=== PATIENT | female | born 1940 | race Caucasian/White ===

== ENCOUNTER → 2016-12-19 | Outpatient (CLI) | payer OTHER ==
--- NOTE | 2016-12-19 12:44 | MAMMOGRAPHY REPORT ---
BILATERAL DIGITAL SCREENING MAMMOGRAM WITH CAD: 12/19/2016 CLINICAL HISTORY: Routine screening. TECHNIQUE: Current study was also evaluated with a Computer Aided Detection (CAD) system. Bilateral CC and MLO views were obtained. COMPARISON: Comparison is made to exams dated: 10/18/2015 mammogram, 10/13/2014 mammogram, 10/12/2013 mamm ogram, 10/08/2012 mammogram, 10/08/2011 mammogram, and 10/02/2010 mammogram - [facility] er. BREAST COMPOSITION: The tissue of both breasts is heterogeneously dense, which may obscure small mas ses. FINDINGS: No suspicious masses, calcifications, or areas of architectural distortion are noted in ei ther breast. There has been no significant interval change compared to prior exams. IMPRESSION: ACR BI-RADS CATEGORY 1: NEGATIVE There is no mammographic evidence of malignancy. A 1 year screening mammogram is recommended. The pa tient will receive written notification of the results. Approximately 10% of breast cancers are not detected with mammography. A negative mammographic report should not delay biopsy if a clinically suggestive mass is present. Petra Rand M.D. ah/:12/19/2016 09:39:36 Collator Operator: Rachna JOHNSON(R)(M), [facility] letter sent: Normal 1/2 BI-RADS Code: ACR BI-RADS Category 1: Negative
== END | disposition home or self-care (01) ==
LOC: C.MAMM 08:44
PROVIDERS: ATTEND Internal Medicine
DX: Z12.31 Encounter for screening mammogram for malignant neoplasm of breast (principal)

== ENCOUNTER 2022-04-10 09:40 | Inpatient (IN) ==
[2022-04-10 10:42] LABS: Basophils # (auto) 0.07 K/uL (0-0.2); Basophils % (auto) 0.5 %; Hematocrit (blood only) 37.3 % (34.1-44.9); Hemoglobin 13.4 g/dl (12.0-16.0); Immature Granulocytes # (auto) 0.09 K/uL (0.00-0.02); Immature Granulocytes % (auto) 0.6 %; Lymphocytes # (auto) 0.51 K/uL (1.2-3.4); Lymphocytes % (auto) 3.7 %; Mean Corpuscular Hemoglobin 31.7 pg (25.0-34.0); Mean Corpuscular Hgb Conc 35.9 g/dL (32.0-36.0); Mean Corpuscular Volume 88.2 fL (80.0-100.0); Mean Platelet Volume 10.6 fL (9.4-12.3); Monocytes % (auto) 11.5 %; Neutrophils # (auto) 11.68 K/uL (1.4-6.5); Neutrophils % (auto) 83.7 %; Platelet Count 292 K/uL (130-400); RDW Coefficient of Variation 13.2 % (11.5-14.5); RDW Standard Deviation 42.5 fL (36.4-46.3); Red Blood Count 4.23 M/uL (3.93-5.22); White Blood Count 13.95 K/ul (4.8-10.8)
--- NOTE | 2022-04-10 10:46 | Emergency Department Note ---
Impression & Plan Acute pyelonephritis, Acute hyponatremia ED Provider Note Name: ARASELI SHORT Age: 81 Sex: F Arrives Via: Walk-In Informant: Patient, Son ED Provider: David Dueñas MD Chief Complaint: Illness Impression: As per impressions above Medical Decision Making: Pleasant 81-year-old female who is usually quite active though over the last few days worsening weakness, fevers, urinary symptoms. She does have a history of hypertension, hypothyroidism. She on examination is tired and febrile. Her initial evaluation and some subsequent evaluations were done in the waiting room due to no available main department beds. She was agreeable to these evaluations and understands the difficulty. I did obtain an ultrasound of the bladder which reveals no evidence of acute obstruction. She does have a thickened bladder wall on my ultrasound. Laboratory work-up is with mild WBC elevation as well as a significant hyponatremia which is worse than her baseline. This would lean towards her generalized weakness in addition to the pyelonephritis that given her fevers, white blood cell count UA findings and left flank tenderness palpation is evident. She will be treated with IV Rocephin after blood cultures and lactic acid obtained. The hospitalist was consulted for further management given she is quite weak and has multiple concerning findings. Patient and son are comfortable with this plan. I will note she has no abdominal peritonitis and is not in severe sepsis/septic shock at this time with a normal blood pressure and normal lactate thus would not give 30/kg IV fluids at this time. Prior Medical Record and Triage/Nursing Notes reviewed by Me Additional history obtained from Differentials:Infection, dehydration, metabolic abnormality, hypo/hyperglycemia, electrolyte disturbance, anemia, hypoxia, cardiac sources, intracerebral event, toxicologic, neurologic, as well as other pathologies. Vital Signs: reviewed and remarkable for fever hypertension Interventions: Normal saline bolus, Rocephin 2 g IV Labs:Reviewed and remarkable for hyponatremia, mildly elevated white blood cell count, UA consistent with UTI Consults:[facility] Hospitalist Plan: Disposition:Hospitalization. Condition: Good History of Present Illness:81-year-old female arrives for evaluation of urinary burning. Patient with 5 days of urinary burning, frequency, urgency. She notes last few days urine output has decreased. Associated fevers, chills some mild left flank pain. No nausea, vomiting, passing out. No she feels very weak and has been using a cane to get around due to the weakness. Denies any headache, neck pain, neurologic deficits. Tylenol earlier this morning with improvement though fevers to return. No significant history of urinary infections. She also notes she has not had normal bowel movement in the last week but is passing gas. ROS: See above HPI for pertinent positives & negatives. A total of 10 systems reviewed and were otherwise negative. Past Medical History:Hypothyroid, hypertension Past Surgical History:none Family History:non-contributory Social History:nonsmoker Home Medications:See Below Allergies:nkda Vitals:Blood Pressure: 162/80, Pulse 83, RR 20, T 38.0C, O2 96% on RA Physical Exam: GENERAL: Patient is tired appearing and in minimal distress. EYES: No scleral icterus, unremarkable pupils. ENT: Mucous membranes moist, no nasal congestion. NECK: No masses appreciated, nomeningismus, trachea is midline. RESPIRATORY: No dyspnea. Clear to auscultation and equal bilaterally. No wheeze, no rhonchi. CARDIOVASCULAR: Regular rate and rhythm.No murmurs, rubs, gallops appreciated. GASTROINTESTINAL: Abdomen soft, non-tender, no peritonitis.Bowel sounds positive.No masses appreciated. BACK: No midline tenderness, mild left CVA tenderness EXTREMITIES: Normal motion all extremities, no cyanosis, no edema. NEUROLOGIC: Alert and oriented, no acute motor or sensory deficits, no focal weakness, cranial nerves grossly intact. SKIN: No rash, no jaundice, no diaphoresis. PSYCH: Appropriate GCS: 15 ED Course: Times/Reassessments: Patient is stable and agreeable to hospitalization. David Dueñas MD Past Med/Surg History Medical History (Updated 04/10/22 @ 13:50 by David Dueñas MD) Chronic hyponatremia HTN (hypertension) Hypothyroidism Surgical History (Updated 04/10/22 @ 13:25 by Jane Olvera PA-C) History of cataract surgery History of colonoscopy Family History (Updated 04/10/22 @ 13:25 by Jane Olvera PA-C) Father Stroke Mother Stroke Social History (Updated 04/10/22 @ 13:25 by Jane Olvera PA-C) Smoking Status: Never smoker Hx Alcohol Use: No Hx Substance Use: No Preferred Language: Croatian Feels Safe at Home: Yes Allergies Allergies Allergy/AdvReac Type Severity Reaction Status Date / Time No Known Allergies Allergy Verified 08/17/20 12:26 Home Meds Home Medications Medication Instructions Recorded Confirmed aspirin 81 mg tablet,delayed 81 mg PO MOWEFR 02/19/20 04/10/22 release levothyroxine 112 mcg tablet 112 mcg PO QAM 02/19/20 04/10/22 lisinopril 20 mg tablet 20 mg PO BID 02/19/20 04/10/22 metoprolol succinate 25 mg 25 mg PO PM 02/19/20 04/10/22 tablet,extended release 24 hr multivit with 1 tab PO QAM 02/19/20 04/10/22 seuhwopt-veei-AJ-lutein 8 mg iron-400 mcg-300 mcg tablet (Centrum Silver Women) calcium carb-ergocalciferol (vit 1 tab PO MOFR 04/10/22 04/10/22 D2) 500 mg (1,250 mg)-200 unit tablet Results & Data (ED) Vital Signs Vital Signs - 24 hr 04/10/22 09:53 Temperature 38.0 C H Temperature Source Temporal Artery Scan Pulse Rate 83 Pulse Rhythm Regular Pulse Strength Normal Respiratory Rate 20 Respiratory Effort / Characteristics Non-Labored Spontaneous Respiratory Depth Normal Respiratory Pattern Regular Blood Pressure 162/80 H Blood Pressure Mean 107 Blood Pressure Position Sitting Pulse Oximetry 96 Oxygen Delivery Method Room Air Sepsis Recent Fever Within 48 Hours Yes Sepsis New/Unexplained Change in Mental Status No Sepsis Action Taken by Nursing No Action Required Laboratory Data Result diagrams: 04/10/22 10:23 04/10/22 10:23 Lab Results 04/10/22 04/10/22 04/10/22 Range/Units 10:23 10:23 10:23 WBC 13.95 H (4.8-10.8) K/ul RBC 4.23 (3.93-5.22) M/uL Hgb 13.4 (12.0-16.0) g/dl Hct 37.3 (34.1-44.9) % MCV 88.2 (80.0-100.0) fL MCH 31.7 (25.0-34.0) pg MCHC 35.9 (32.0-36.0) g/dL RDW Std Deviation 42.5 (36.4-46.3) fL RDW Coeff of Sri 13.2 (11.5-14.5) % Plt Count 292 (130-400) K/uL MPV 10.6 (9.4-12.3) fL Immature Gran % (Auto) 0.6 % Neut % (Auto) 83.7 % Lymph % (Auto) 3.7 % Emanuel % (Auto) 11.5 % Eos % (Auto) 0.0 % Baso % (Auto) 0.5 % Neut # (Auto) 11.68 H (1.4-6.5) K/uL Lymph # (Auto) 0.51 L (1.2-3.4) K/uL Emanuel # (Auto) 1.60 H (0.24-0.82) K/uL Eos # (Auto) 0.00 (0-0.50) K/uL Baso # (Auto) 0.07 (0-0.2) K/uL Immature Gran # (Auto) 0.09 H (0.00-0.02) K/uL Sodium 124 L (136-145) mmol/L Potassium 4.4 (3.5-5.1) mmol/L Chloride 91 L (98-107) mmol/L Carbon Dioxide 23 (21-32) mmol/L Anion Gap 10 (3-11) BUN 12 (6-23) mg/dl Creatinine 1.07 (0.6-1.2) mg/dl Est Cr Clr Drug Dosing 37.1 ml/min Est GFR ( Amer) 56.4 ml/min Est GFR (Non-Af Amer) 48.6 ml/min BUN/Creatinine Ratio 11.2 (10-20) Glucose 109 H (70-99(Fasting)) mg/dl Lactate (0.4-2.0) mmol/L Calcium 9.4 (8.5-10.1) mg/dl Total Bilirubin 1.1 H (0.2-1.0) mg/dl AST 19 (13-39) U/L ALT 13 (7-52) U/L Alkaline Phosphatase 71 (34-104) U/L Total Protein 7.5 (6.0-8.3) gm/dl Albumin 4.2 (3.4-5.0) gm/dl Globulin 3.3 (2.5-4.0) gm/dl Albumin/Globulin Ratio 1.3 (0.9-2) Procalcitonin (0-0.5) ng/ml Urine Color Dark Yellow Urine Appearance Turbid A (Clear) Urine pH 6.0 (4.5-7.5) Ur Specific Orange 1.017 (1.000-1.030) Urine Protein 2+ H (Negative) Urine Glucose (UA) Negative (Negative) Urine Ketones 1+ H (Negative) Urine Blood 3+ H (Negative) Urine Nitrite Positive A (Negative) Urine Bilirubin Negative (Negative) Urine Urobilinogen Negative (Negative) Ur Leukocyte Esterase 3+ H (Negative) Urine WBC (Auto) >30 H (0-5) /hpf Urine RBC (Auto) >30 H (0-4) /hpf U Hyaline Cast (Auto) 1-5 (0-5) /lpf U Epithel Cells (Auto) 5-10 H (0-5) /lpf Urine Bacteria (Auto) 4+ H (Negative) SARS-CoV-2 (PCR) (Negative) Influenza Type A (PCR) (Neg) Influenza Type B (PCR) (Neg) RSV (RT-PCR) (Neg) 04/10/22 04/10/22 04/10/22 Range/Units 11:43 11:43 12:51 WBC (4.8-10.8) K/ul RBC (3.93-5.22) M/uL Hgb (12.0-16.0) g/dl Hct (34.1-44.9) % MCV (80.0-100.0) fL MCH (25.0-34.0) pg MCHC (32.0-36.0) g/dL RDW Std Deviation (36.4-46.3) fL RDW Coeff of Sri (11.5-14.5) % Plt Count (130-400) K/uL MPV (9.4-12.3) fL Immature Gran % (Auto) % Neut % (Auto) % Lymph % (Auto) % Emanuel % (Auto) % Eos % (Auto) % Baso % (Auto) % Neut # (Auto) (1.4-6.5) K/uL Lymph # (Auto) (1.2-3.4) K/uL Emanuel # (Auto) (0.24-0.82) K/uL Eos # (Auto) (0-0.50) K/uL Baso # (Auto) (0-0.2) K/uL Immature Gran # (Auto) (0.00-0.02) K/uL Sodium (136-145) mmol/L Potassium (3.5-5.1) mmol/L Chloride (98-107) mmol/L Carbon Dioxide (21-32) mmol/L Anion Gap (3-11) BUN (6-23) mg/dl Creatinine (0.6-1.2) mg/dl Est Cr Clr Drug Dosing ml/min Est GFR ( Amer) ml/min Est GFR (Non-Af Amer) ml/min BUN/Creatinine Ratio (10-20) Glucose (70-99(Fasting)) mg/dl Lactate 0.8 (0.4-2.0) mmol/L Calcium (8.5-10.1) mg/dl Total Bilirubin (0.2-1.0) mg/dl AST (13-39) U/L ALT (7-52) U/L Alkaline Phosphatase (34-104) U/L Total Protein (6.0-8.3) gm/dl Albumin (3.4-5.0) gm/dl Globulin (2.5-4.0) gm/dl Albumin/Globulin Ratio (0.9-2) Procalcitonin 0.50 (0-0.5) ng/ml Urine Color Urine Appearance (Clear) Urine pH (4.5-7.5) Ur Specific Orange (1.000-1.030) Urine Protein (Negative) Urine Glucose (UA) (Negative) Urine Ketones (Negative) Urine Blood (Negative) Urine Nitrite (Negative) Urine Bilirubin (Negative) Urine Urobilinogen (Negative) Ur Leukocyte Esterase (Negative) Urine WBC (Auto) (0-5) /hpf Urine RBC (Auto) (0-4) /hpf U Hyaline Cast (Auto) (0-5) /lpf U Epithel Cells (Auto) (0-5) /lpf Urine Bacteria (Auto) (Negative) SARS-CoV-2 (PCR) NEGATIVE (Negative) Influenza Type A (PCR) Negative (Neg) Influenza Type B (PCR) Negative (Neg) RSV (RT-PCR) Negative (Neg) Administered Medications Discontinued Medications Sodium Chloride (Nss) 500 mls @ 999 mls/hr IV .Q31M ONE Stop: 04/10/22 12:04 Last Infusion: 04/10/22 13:07 Dose: 0 mls/hr Documented By: Admin: 04/10/22 12:35 Dose: 999 mls/hr Documented By: TNB Ceftriaxone Sodium (Rocephin) 2,000 mg in 70 mls @ 140 mls/hr IV NOW STA Stop: 04/10/22 12:03 Last Infusion: 04/10/22 13:07 Dose: 0 mls/hr Documented By: Admin: 04/10/22 12:35 Dose: 140 mls/hr Documented By: TNB Discharge Plan Visit Data Chief Complaint: Urinary Symptoms Stated Complaint: FEVER, HARD TIME URINATING ED Provider: David Dueñas Discharge Problem: Acute pyelonephritis, Acute hyponatremia Forms Stand Alone Forms: [facility] Prescriptions Prescriptions: No Action lisinopril 20 mg tablet 20 mg PO BID aspirin [Aspirin Low-Strength] 81 mg Tablet,Delayed Release (Dr/Ec) 81 mg PO MOWEFR Rx Instructions: takes at noon metoprolol succinate 25 mg tablet extended release 24 hr 25 mg PO PM levothyroxine 112 mcg tablet 112 mcg PO QAM Centrum Silver Women 8 mg iron-400 mcg-300 mcg Tablet 1 tab PO QAM Calcium 500 with Vitamin D2 500 mg(1,250mg) -200 unit Tablet 1 tab PO MOWEFR Referrals Referrals: Billy Feliz [Primary Care Provider] -
[2022-04-10 10:48] LABS: Appearance Urine Turbid (Clear); Bacteria Urine Automated 4+ (Negative); Bilirubin Urine Negative (Negative); Blood Urine 3+ (Negative); Color Urine Dark Yellow; Glucose Urine UA Negative (Negative); Ketones Urine 1+ (Negative); Leukocyte Esterase Urine 3+ (Negative); Nitrite Urine Positive (Negative); Protein Urine 2+ (Negative); RBC Urine Automated >30 /hpf (0-4); Specific Gravity Urine 1.017 (1.000-1.030); Urobilinogen Urine Negative (Negative); WBC Urine Automated >30 /hpf (0-5)
--- NOTE | 2022-04-10 10:52 | Emergency Department Note ---
ED Visit Note I personally performed a history and examined the patient in conjunction with Dr. Dueñas. Additional information regarding the history, physical, assessment, and plan were discussed with supervising attending physician and are noted in their ED visit note. Resident Activity Tracking Resident Involvement: Resident Care Provided Care Provided: Adult ED
[2022-04-10 11:10] LABS: Albumin Globulin Ratio 1.3 (0.9-2); Albumin Level 4.2 gm/dl (3.4-5.0); BUN Creatinine Ratio 11.2 (10-20); Bilirubin,Total 1.1 mg/dl (0.2-1.0); Calcium 9.4 mg/dl (8.5-10.1); Creatinine Clr Calc Pharmacy 37.1 ml/min; Est GFR (African American) 56.4 ml/min; Est GFR (Non-African American) 48.6 ml/min; Globulin 3.3 gm/dl (2.5-4.0); Potassium 4.4 mmol/L (3.5-5.1); Total Protein 7.5 gm/dl (6.0-8.3)
[2022-04-10] MEDS ORDERED: cefTRIAXone SODIUM 2,000 MG/70 ML BAG IV STA (11:34)
[2022-04-10] MEDS ORDERED: SODIUM CHLORIDE 0.9% 500 ML IV ONE (11:34)
--- NOTE | 2022-04-10 12:33 | History & Physical Report ---
Date of Service April 10, 2022 Assessment & Plan (1) UTI (urinary tract infection): (2) Sepsis: Plan: Possible Pyelonephritis Patient is 81-year-old female with PMH HTN, hypothyroidism, chronic hyponatremia presented to ER with complaint of urinary frequency, urinary urgency, dysuria, hematuria x5 days. Fever 102F started yesterday. Today with generalized weakness and lightheadedness. In ER T: 38C, P: 83, R: 20, BP 162/80, 96% on room air. WBC: 13, Cr: 1.0, lactate: 0.8, procalcitonin: 0.5. UA 3+ blood, + nitrite, 3+ leuk esterase,> 30 WBC, 4+ bacteria Urine culture pending Blood culture pending In ER given 500 mL NSS, Rocephin 2 g IV Will continue Rocephin Renal ultrasound pending to r/o stone, pyelonephritis PT/OT eval Fall precautions CBC, BMP in a.m. (3) Chronic hyponatremia: Plan: Na: 124. Outpatient chart review shows sodium of 125 on 04/03/2022, 126 on 11/07/2021 and 06/18/2021 Urine osmolality, serum osmolality, urine sodium, TSH pending Repeat BMP today to determine further IVF (4) HTN (hypertension): Plan: Continue lisinopril, metoprolol succinate (5) Hypothyroidism: Plan: TSH pending Continue levothyroxine DVT Prophylaxis SCDs for now Full Code as per discussion with pt Follows with Dr Feliz for routine care Pt was seen and care coordinated with Dr Armando. See addendum History of Present Illness Chief Complaint: Urinary symptoms Primary Care Provider: Billy Feliz Patient is 81-year-old female with PMH HTN, hypothyroidism, chronic hyponatremia presented to ER with complaint of urinary symptoms x5 days. Patient states 5 days ago started with urinary urgency, urinary frequency, dysuria, hematuria. Reports was seen at an urgent care center 4 days ago and had urine sample however never was told results and was not started on any antibiotics. Patient reports urinating frequently however small amounts past 2 days. Yesterday with fever 102F, chills. Today has generalized weakness, feels lightheaded. Patient also reports left flank tenderness with range of motion. Denies history of UTI or kidney stones. Denies injury or trauma. Patient has been taking Tylenol 1 OTC tablet which initially brings down fever however fever returns. Last dose Tylenol this morning. States no BM for past 4 days. Denies diaphoresis, N/V/D, ROS[place]HAL, syncope, vision changes, neck pain, CP, SOB, orthopnea, palpitations, cough, sore throat, choking, otalgia, rhinorrhea, other abdominal pain, paresthesias, extremity weakness, extremity edema, rashes. Allergies Allergy/AdvReac Type Severity Reaction Status Date / Time No Known Allergies Allergy Verified 08/17/20 12:26 Home Medications Medication Instructions Recorded Confirmed Type aspirin 81 mg tablet,delayed 81 mg PO MOWEFR 02/19/20 04/10/22 History release levothyroxine 112 mcg tablet 112 mcg PO QAM 02/19/20 04/10/22 History lisinopril 20 mg tablet 20 mg PO BID 02/19/20 04/10/22 History metoprolol succinate 25 mg 25 mg PO PM 02/19/20 04/10/22 History tablet,extended release 24 hr multivit with 1 tab PO QAM 02/19/20 04/10/22 History zwttjefn-mdeu-GE-lutein 8 mg iron-400 mcg-300 mcg tablet (Centrum Silver Women) calcium carb-ergocalciferol (vit 1 tab PO MOWEFR 04/10/22 04/10/22 History D2) 500 mg (1,250 mg)-200 unit tablet Past Med/Surg History Medical History (Updated 04/10/22 @ 13:50 by David Dueñas MD) Chronic hyponatremia HTN (hypertension) Hypothyroidism Surgical History (Updated 04/10/22 @ 13:25 by Jane Olvera PA-C) History of cataract surgery History of colonoscopy Family History (Updated 04/10/22 @ 13:25 by Jane Olvera PA-C) Father Stroke Mother Stroke Social History (Updated 04/10/22 @ 13:25 by Jane Olvera PA-C) Smoking Status: Never smoker Hx Alcohol Use: No Hx Substance Use: No Preferred Language: Dutch Feels Safe at Home: Yes Review of Systems Review of Systems: All systems reviewed & are unremarkable except as noted in HPI & below Physical Exam Physical Exam: General: no distress, WDWN Head: normocephalic, atraumatic Eyes: conjunctiva non-injected, anicteric ENT: normal inspection external ears, nose, mucous membranes moist Neck: supple, trachea midline Lungs: clear, no respiratory distress, no wheezing/rhonchi/rales CV: RRR, no murmur, no pretibial edema Abd: normal BS, soft, non-tender, + Left CVA/posterior flank tenderness to palpation Ext: no cyanosis, no calf tenderness Neuro: A&O x 3, no focal deficits noted, normal affect Skin: warm, dry Results & Data Results & Data ([facility]) Vital Signs (Past 12 Hours) Vital Signs Temp Pulse Resp BP Pulse Ox O2 Del Method 04/10/22 09:53 38.0 C H 83 20 162/80 H 96 Room Air Laboratory Results Short CBC 04/10/22 Range/Units 10:23 WBC 13.95 H (4.8-10.8) K/ul Hgb 13.4 (12.0-16.0) g/dl Hct 37.3 (34.1-44.9) % Plt Count 292 (130-400) K/uL BMP 04/10/22 10:23 Sodium 124 L Potassium 4.4 Chloride 91 L Carbon Dioxide 23 BUN 12 Creatinine 1.07 Glucose 109 H Calcium 9.4 Liver Function 04/10/22 Range/Units 10:23 Total Bilirubin 1.1 H (0.2-1.0) mg/dl AST 19 (13-39) U/L ALT 13 (7-52) U/L Alkaline Phosphatase 71 (34-104) U/L Albumin 4.2 (3.4-5.0) gm/dl Urine 04/10/22 Range/Units 10:23 Urine Color Dark Yellow Urine Appearance Turbid A (Clear) Urine pH 6.0 (4.5-7.5) Ur Specific [place] 1.017 (1.000-1.030) Urine Protein 2+ H (Negative) Urine Glucose (UA) Negative (Negative) Supervising Physician Co-Signing Physician Notes Patient is an 81-year-old female with history of hypothyroidism, chronic hyponatremia and other medical problems presents with history of urinary urgency, frequency, dysuria, hematuria for about 4 to 5 days duration. She also states having some left flank pain. Please review HPI for complete details of presentation. I personally reviewed blood work, imaging studies. On exam patient is moderately built and nourished, no apparent distress, normocephalic atraumatic, EOMI, normal breath sounds, clear to auscultation, S1-S2, no murmur, tachycardic, no pedal edema, abdomen soft, left flank mildly tender, nondistended, normal bowel sounds, alert, awake, oriented, grossly no focal deficits. Patient is admitted for management of complicated urinary tract infection, sepsis. Obstructive uropathy noted on CT. Agree with starting on IV Rocephin, bladder scan to evaluate for any retention. Urology consulted. Blood, urine cultures pending. Chronic hyponatremia likely secondary to excess fluid intake. Patient admits to drinking a lot of fluids. Monitor sodium levels. No mental status changes noted. Consider nephrology evaluation if needed. TSH normal. Started on fluid restriction. I personally reviewed the record. Patient is interviewed and examined at bedside. Patient's care is coordinated with Jane Olvera PA-C. Please refer to the documentation above for details of patient's presentation and for discussion of other issues.
[2022-04-10 13:38] LABS: Influenza A virus by PCR Negative (Neg); Influenza B virus by PCR Negative (Neg); RSV by PCR Negative (Neg); SARS CoV2 RNA(COVID-19) Ceph NEGATIVE (Negative)
--- NOTE | 2022-04-10 15:30 | Ultrasound Report ---
US renal/blad retro comp CLINICAL HISTORY: UTI, r/o stone, pyelo TECHNIQUE: Multiple sonographic real-time images of the kidneys and bladder were obtained. COMPARISON: None available at the time of this dictation. FINDINGS: The right kidney measures 11.2 cm in length, and the left kidney measures 12.1 cm in length. The right kidney is normal in size, contour, cortical thickness, and echogenicity. Pelviectasis is se en without hydronephrosis. No renal lesion is identified. No perinephric fluid collection is seen. The left kidney is normal in size, contour, cortical thickness and echogenicity. There is possible l ower pole hydronephrosis. A cyst in the lower pole measures 1.9 cm. No perinephric fluid collection is seen. The bladder is underdistended limiting visualization. There is suggestion of thickening of the manager rfid ior wall. No large intraluminal mass is seen. IMPRESSION: Possible left lower pole hydronephrosis. No obstructive stone is seen. If there is clinical concern, CT renal stone protocol can be performed. ACT 112: Negative or not required by law. Electronically signed by: Rhys Lee M.D. 04/10/2022 3:29 PM
[2022-04-10 16:10] LABS: BUN Creatinine Ratio 12.4 (10-20); Calcium 8.9 mg/dl (8.5-10.1); Creatinine Clr Calc Pharmacy 37.8 ml/min; Est GFR (African American) 57.7 ml/min; Est GFR (Non-African American) 49.8 ml/min; Potassium 4.4 mmol/L (3.5-5.1)
--- NOTE | 2022-04-10 17:10 | CT Scan Report ---
CT abd pelvis wo con CLINICAL HISTORY: R/O stone TECHNIQUE: Helical axial images of the abdomen and pelvis were obtained. Automated dose lowering tech niques and/or adjustment according to patient size were utilized for this exam. This exam was perfor med without intravenous contrast. CT DOSE: 276.40 mGy.cm COMPARISON: Comparison is made to renal ultrasound 04/10/2022 FINDINGS: Lower chest: Bibasilar atelectasis versus scarring is seen. Liver: Unremarkable. No focal lesions are seen. Gallbladder and biliary tree: No calcified gallstones. Normal caliber wall. No intra- or extrahepatic biliary ductal dilation. Pancreas: Unremarkable, no focal lesions. Spleen: Unremarkable. Adrenals: Unremarkable. Kidneys and ureters: Left hydronephrosis is seen with associated hydroureter. There is no visualized obstructive stone. The right kidney is normal. Bladder: Limited evaluation due to underdistention. Reproductive organs: Unremarkable. Bowel: Unremarkable appearance of the bowel. The appendix is normal. Lymph nodes Retroperitoneal: Unremarkable. Pelvic: Unremarkable. Mesenteric: Unremarkable. Peritoneum: Normal. Vessels: Atherosclerotic calcifications are seen. Abdominal wall: Unremarkable. Bones: Degenerative changes in the visualized spine. There are compression deformities of L3 and L1 w hich appear chronic. IMPRESSION: Right hydronephrosis and hydroureter without evidence of obstructive stone. This may represent a rece ntly passed stone. Otherwise no acute abnormalities. ACT 112: Negative or not required by law. Electronically signed by: Rhys Lee M.D. 04/10/2022 5:08 PM
[2022-04-10 21:34] LABS: BUN Creatinine Ratio 12.5 (10-20); Calcium 8.6 mg/dl (8.5-10.1); Creatinine Clr Calc Pharmacy 35.4 ml/min; Est GFR (African American) 53.4 ml/min; Potassium 4.2 mmol/L (3.5-5.1)
[2022-04-10] MEDS ORDERED: ONDANSETRON INJ 2 MG/ML 2 ML VIAL IV PRN (22:24)
[2022-04-10] MEDS ORDERED: DOCUSATE SODIUM 100 MG CAP PO ONE (22:40)
[2022-04-11] MEDS: ACETAMINOPHEN 325 MG TAB PO PRN ×3 (03:40→23:51)
[2022-04-11] MEDS: LEVOTHYROXINE SODIUM 112 MCG TABLET PO SCH (06:04)
--- NOTE | 2022-04-11 08:09 | Urology Consultation ---
Date of Consultation April 11, 2022 Assessment & Plan (1) Acute pyelonephritis: (2) Sepsis: 81 yo F admitted for sepsis secondary to suspected acute pyelonephritis, acute hyponatremia. - Febrile overnight (Tmax 39.4), afebrile this am. - Subjectively she is feeling better since arrival. - Labs reviewed - creatinine 0.99, WBC improved to 8.20. - Urine and blood cultures are growing gram negative bacilli. - Continue broad spectrum antibiotics and narrow per sensitivity data when available. - CTAP shows left hydronephrosis and hydroureter, no obstructive stones visualized. - Hydronephrosis likely secondary to urinary tract infection/pyelonephritis. - Continue broad spectrum antibiotics and supportive care per medicine service. - Recommend bowel regimen for constipation. - Bladder scan prn. - No acute intervention at this time. - will continue to follow. History of Present Illness Reason for Consultation: Obstructive uropathy Requesting Physician: Dr. Armando Attending Physician: Fernando Armando MD History of Present Illness This is an 81-year-old female with past medical history of chronic hyponatremia, hypothyroidism, and hypertension who presented to the emergency department on 04/10/2022 with fever, weakness and urinary symptoms. On arrival to the ER, she was febrile and hypertensive, but otherwise hemodynamically stable. Lab work reviewed and notable for mild leukocytosis of 13.95. Chemistry showed a sodium of 125, creatinine 1.12. Lactate 0.8. Urinalysis was notable for turbid urine, 2+ protein, 3+ blood, positive nitrates, 3+ leukocyte Estrace, >30 WBC, >30 RBC, 4+ bacteria. She had a renal US on arrival noting possible left hydronephrosis. A CT A/P was obtained for further evaluation. CT imaging independently reviewed and showed left hydronephrosis and hydroureter, no obstructive stones visualized. Urine and blood cultures obtained and pending. She was treated with IV fluids and ceftriaxone in the ED. She was admitted for acute pyelonephritis and acute hyponatremia. Urology consulted for obstructive uropathy. Chart reviewed: Febrile overnight Tmax 39.4 at 0339, afebrile during exam. Labs today - creatinine 0.99, WBC 8.20, urine and blood cultures showing gram negative bacilli. On IV Ceftriaxone. Patient seen and examined at bedside this morning. Subjectively feeling better since arrival. She reports developing urinary symptoms of urgency, dysuria, and hematuria about 6 days ago. She went to urgent care for evaluation. She had urine testing done, but did not hear about her results and was not started on treatment. She developed a fever at home 2 days ago and generalized weakness, which prompted her to come to ER. Left flank discomfort has improved. No nausea or vomiting. Voiding spontaneously. No dysuria or hematuria. No fever or chills at present. Reports constipation over the last 2 days. No personal or family history of kidney stones. No history of frequent UTIs. Never smoker. Allergies Allergy/AdvReac Type Severity Reaction Status Date / Time No Known Allergies Allergy Verified 08/17/20 12:26 Home Medications Medication Instructions Recorded Confirmed Type aspirin 81 mg tablet,delayed 81 mg PO MOWEFR 02/19/20 04/10/22 History release levothyroxine 112 mcg tablet 112 mcg PO QAM 02/19/20 04/10/22 History lisinopril 20 mg tablet 20 mg PO BID 02/19/20 04/10/22 History metoprolol succinate 25 mg 25 mg PO PM 02/19/20 04/10/22 History tablet,extended release 24 hr multivit with 1 tab PO QAM 02/19/20 04/10/22 History uxkgeaqn-[id number]-MR-lutein 8 mg iron-400 mcg-300 mcg tablet (Centrum Silver Women) calcium carb-ergocalciferol (vit 1 tab PO MOWEFR 04/10/22 04/10/22 History D2) 500 mg (1,250 mg)-200 unit tablet Patient History Medical History Chronic hyponatremia HTN (hypertension) Hypothyroidism Surgical History History of cataract surgery History of colonoscopy Family History Father Stroke Mother Stroke Social History Smoking Status: Never smoker Hx Alcohol Use: No Hx Substance Use: No Preferred Language: [place] Leonean Communication Ability: Effective Drilling Rig Operator Required: No Beliefs That Will Affect Care: None Current Living Situation: Alone Other Information That Helps Us Care for You: No Feels Safe at Home: Yes Safety Concerns: Feels Safe At This Time Assistive Devices: None Review of Systems Review of Systems: All systems reviewed & are unremarkable except as noted in HPI & below Physical Exam Constitutional: well developed and well nourished; no acute distress and not ill appearing Neck: normal visual inspection Respiratory: normal respiratory effort and able to speak in complete s entences; no respiratory distress and no labored breathing Cardiovascular: Extremities: no pedal edema Gastrointestinal (Abdomen): Inspection/Auscultation: abdomen normal to inspection; abdomen not distended Percussion/Palpation: abdomen soft; abdomen nontender and no guarding Musculoskeletal: Head/Neck/Chest: normocephalic and head atraumatic Neurologic: moves all extremities and awake Psychiatric: Orientation: alert and oriented x 3 Genitourinary: + CVA tenderness (mild tenderness over left flank/lower back) Results & Data ([facility]) Vital Signs (Past 12 Hours) Vital Signs Temp Pulse Pulse Resp BP Pulse Ox O2 Del Method 04/11/22 04:36 37.7 C H 04/11/22 03:39 39.4 C H 90 18 118/68 96 Room Air 04/10/22 22:50 83 04/10/22 22:25 Room Air 04/10/22 22:25 36.7 C 86 18 149/65 H 98 Room Air 04/10/22 23:54 36.7 C 86 18 149/65 H 98 Room Air PG Care Time/CCT Total # of Minutes Spent Total Time Spent with Patient: Total time spent is greater than 50% in coordination of care (as documented) at patient's floor/unit and/or counseling patient: Coding Level of Care Code 92497 Initial Inpt Care Lvl 2 Diagnoses Acute pyelonephritis N10 Sepsis A41.9
[2022-04-11] MEDS: lisinopril 20 MG TAB PO SCH ×3 (08:31→21:46)
[2022-04-11] MEDS: DOCUSATE SODIUM 100 MG CAP PO SCH ×2 (08:33→21:46)
[2022-04-11] MEDS: POLYETHYLENE (MIRALAX) 17 GM PACK PO SCH (08:33)
[2022-04-11 09:29] LABS: Basophils # (auto) 0.06 K/uL (0-0.2); Basophils % (auto) 0.7 %; Eosinophils # (auto) 0.02 K/uL (0-0.50); Eosinophils % (auto) 0.2 %; Hemoglobin 12.2 g/dl (12.0-16.0); Immature Granulocytes # (auto) 0.07 K/uL (0.00-0.02); Immature Granulocytes % (auto) 0.9 %; Lymphocytes # (auto) 0.68 K/uL (1.2-3.4); Lymphocytes % (auto) 8.3 %; Mean Corpuscular Hgb Conc 34.9 g/dL (32.0-36.0); Mean Corpuscular Volume 89.1 fL (80.0-100.0); Mean Platelet Volume 10.5 fL (9.4-12.3); Monocytes % (auto) 8.5 %; Neutrophils # (auto) 6.67 K/uL (1.4-6.5); Neutrophils % (auto) 81.4 %; Platelet Count 248 K/uL (130-400); RDW Coefficient of Variation 13.3 % (11.5-14.5); RDW Standard Deviation 43.8 fL (36.4-46.3); Red Blood Count 3.93 M/uL (3.93-5.22)
[2022-04-11 09:53] LABS: BUN Creatinine Ratio 16.2 (10-20); Calcium 9.1 mg/dl (8.5-10.1); Creatinine Clr Calc Pharmacy 40.1 ml/min; Est GFR (African American) 61.9 ml/min; Est GFR (Non-African American) 53.4 ml/min; Potassium 3.9 mmol/L (3.5-5.1)
[2022-04-11 10:52] LABS: CTX-M Resistant Gene Not Detected (NotDetected); IMP Resistant Gene Not Detected (NotDetected); KPC Resistant Gene Not Detected (NotDetected); NDM Resistant Gene Not Detected (NotDetected); OXA 48 Like Resistant Gene Not Detected (NotDetected); VIM Resistant Gene Not Detected (NotDetected); mcr-1 Colistin Resistant Gene Not Detected (NotDetected)
[2022-04-11 10:54] LABS: Enterobacterales DETECTED (NotDetected); Enterobacterales Not Reported DETECTED (NotDetected); Escherichia coli Not Reported DETECTED (NotDetected)
[2022-04-11] MEDS: cefTRIAXone SODIUM 2,000 MG in DEXTROSE 5% 50 ML IV SCH (12:17)
--- NOTE | 2022-04-11 14:25 | Hospitalist Progress Note ---
Date of Service April 11, 2022 Assessment & Plan (1) UTI (urinary tract infection): (2) Sepsis: Plan: Sepsis Acute pyelonephritis Gram-negative bacteremia Obstructive uropathy --CT ABD:Left hydronephrosis and hydroureter without evidence of obstructive stone. This may represent a recently passed stone. Otherwise no acute abnormalities. -- Blood culture growing gram-negative bacilli --Urine culture growing gram-negative bacilli Plan to repeat blood culture tomorrow Continue IV Rocephin Appreciate urology input Generalized weakness PT/OT eval Fall precautions (3) Chronic hyponatremia: Plan: Chronic hyponatremia Outpatient chart review shows sodium of 125 on 04/03/2022, 126 on 11/07/2021 and 06/18/2021 Hypoosmolar hyponatremia Normal TSH Sodium 124 on presentation Serum osmolality 257 Urine osmolality 412, urine sodium 28 ? SIADH Continue fluid restriction Sodium 127 today (4) HTN (hypertension): Plan: Continue lisinopril, metoprolol succinate (5) Hypothyroidism: Plan: TSH normal Continue levothyroxine Constipation Continue bowel regimen DVT Px SCDs for now Re: Hematuria Code Status Full Code Admission and Anticipated Discharge Date Admission Date: April 10, 2022 Subjective Patient is seen and examined at bedside States feeling much better today Chills, dysuria, hematuria resolved Left flank pain is better Denies any chest pain, dyspnea, dizziness No other complaints Review of Systems Review of Systems: All systems reviewed & are unremarkable except as noted in Subjective Physical Exam Physical Exam: Physical Exam: Vitals signs as noted above General Appearance:Moderately built and nourished, no apparent distress Head: normocephalic, Atraumatic Eyes: normal inspection, EOMI Neck: supple, Trachea midline Respiratory/Chest: Normal breath sounds, CTA, No accessory muscle use Cardiovascular: S1, S2, No murmur Abdomen/GI:Soft, Left flank mild tender, Bowel sounds present Extremities/Musculoskeletal:normal inspection, no edema Neurologic/Psych:AAOX3, grossly no focal neurological deficits Skin: normal color, warm Results & Data Results & Data ([facility]) Vital Signs (Past 12 Hours) Vital Signs Temp Pulse Pulse Resp BP Pulse Ox O2 Del Method 04/11/22 11:57 37.2 C 73 18 146/65 H 95 Room Air 04/11/22 07:15 65 04/11/22 09:47 Room Air 04/11/22 07:29 36.5 C 67 18 112/72 98 Room Air 04/11/22 04:36 37.7 C H 04/11/22 03:39 39.4 C H 90 18 118/68 96 Room Air Laboratory Results Short CBC 04/11/22 Range/Units 08:48 WBC 8.20 (4.8-10.8) K/ul Hgb 12.2 (12.0-16.0) g/dl Hct 35.0 (34.1-44.9) % Plt Count 248 (130-400) K/uL BMP 04/10/22 04/10/22 04/11/22 15:27 21:02 08:48 Sodium 124 L 125 L 127 L Potassium 4.4 4.2 3.9 Chloride 92 L 93 L 95 L Carbon Dioxide 23 23 23 BUN 13 14 16 Creatinine 1.05 1.12 0.99 Glucose 101 H 96 126 H Calcium 8.9 8.6 9.1
[2022-04-11] MEDS: METOPROLOL SUCC 25MG EXT REL TAB PO SCH ×2 (21:46)
[2022-04-12] MEDS: LEVOTHYROXINE SODIUM 112 MCG TABLET PO SCH (05:27)
[2022-04-12 07:12] LABS: Hematocrit (blood only) 35.8 % (34.1-44.9); Hemoglobin 12.5 g/dl (12.0-16.0); Mean Corpuscular Hemoglobin 31.7 pg (25.0-34.0); Mean Corpuscular Hgb Conc 34.9 g/dL (32.0-36.0); Mean Corpuscular Volume 90.9 fL (80.0-100.0); Mean Platelet Volume 9.7 fL (9.4-12.3); Platelet Count 270 K/uL (130-400); RDW Coefficient of Variation 13.2 % (11.5-14.5); RDW Standard Deviation 43.8 fL (36.4-46.3); Red Blood Count 3.94 M/uL (3.93-5.22); White Blood Count 4.99 K/ul (4.8-10.8)
[2022-04-12 07:31] LABS: BUN Creatinine Ratio 17.8 (10-20); Calcium 9.3 mg/dl (8.5-10.1); Creatinine Clr Calc Pharmacy 44.1 ml/min; Est GFR (African American) 69.5 ml/min
[2022-04-12] MEDS: DOCUSATE SODIUM 100 MG CAP PO SCH ×2 (08:05→21:51)
[2022-04-12] MEDS: POLYETHYLENE (MIRALAX) 17 GM PACK PO SCH (08:05)
[2022-04-12] MEDS: lisinopril 20 MG TAB PO SCH ×2 (08:05→21:51)
--- NOTE | 2022-04-12 09:03 | Urology Progress Note ---
Date of Service April 12, 2022 Assessment & Plan (1) Acute pyelonephritis: (2) Sepsis: Plan: 81 yo F admitted for sepsis secondary to suspected acute pyelonephritis, acute hyponatremia. Patient subjectively improving. She developed a fever of 38.8 around midnight, afebrile this morning. No flank pain, urinary symptoms have resolved. Her creatinine and WBC are within normal limits. Urine culture grew out E. coli, sensitive to Ceftriaxone. Blood cultures are showing gram-negative bacilli, repeat blood cultures 04/12 are pending. No acute intervention indicated at this time. She seems to be clinically improving with antibiotics and supportive care. Continue current antibiotics. Recommend transition to appropriate course of PO antibiotics per sensitivities upon discharge when she is medically stable. We will arrange outpatient follow-up with our service in a few weeks with repeat imaging. Thank you for allowing us to participate in the acute care of Ms. Ball. Please contact us with additional questions, concerns or changes in patient status. Admission and Anticipated Discharge Date Admission Date: April 10, 2022 Subjective Patient seen and examined at bedside. She states she is feeling much better this am. She reports fever around midnight, but currently no fever or chills. Voiding spontaneously. Denies flank pain, dysuria or hematuria. No nausea or vomiting. Review of Systems Constitutional: as per Subjective / HPI Gastrointestinal: as per Subjective / HPI Genitourinary: as per Subjective / HPI Physical Exam Constitutional: well developed and well nourished; no acute distress and not ill appearing Respiratory: normal respiratory effort; no respiratory distress and no labored breathing Gastrointestinal (Abdomen): Inspection/Auscultation: abdomen normal to inspection; abdomen not distended Percussion/Palpation: abdomen soft; abdomen nontender Neurologic: moves all extremities and awake Psychiatric: Orientation: alert and oriented x 3 Genitourinary: no CVA tenderness Results & Data ([facility]) Vital Signs (Past 12 Hours) Vital Signs Temp Pulse Pulse Resp BP Pulse Ox O2 Del Method 04/12/22 07:51 36.7 C 74 18 125/78 98 Room Air 04/12/22 04:12 36.8 C 66 16 142/80 H 98 Room Air 04/11/22 22:29 102 H 04/12/22 01:13 37.6 C H 04/11/22 23:58 38.8 C H 87 166/79 H 04/11/22 22:15 37.2 C 82 16 178/84 H 97 Room Air PG Care Time/CCT Total # of Minutes Spent Total Time Spent with Patient: Total time spent is greater than 50% in coordination of care (as documented) at patient's floor/unit and/or counseling patient: Coding Level of Care Code 70800 Subseq Hosp Care Lvl 2 Diagnoses Acute pyelonephritis N10 Sepsis A41.9
[2022-04-12] MEDS ORDERED: ASPIRIN 81 MG ECTAB PO SCH (12:00)
[2022-04-12] MEDS: cefTRIAXone SODIUM 2,000 MG in DEXTROSE 5% 50 ML IV SCH (13:40)
--- NOTE | 2022-04-12 16:25 | Hospitalist Progress Note ---
Date of Service April 12, 2022 Assessment & Plan (1) UTI (urinary tract infection): (2) Sepsis: Plan: Sepsis Acute pyelonephritis Gram-negative bacteremia Obstructive uropathy --CT ABD:Left hydronephrosis and hydroureter without evidence of obstructive stone. This may represent a recently passed stone. Otherwise no acute abnormalities. -- Blood culture growing gram-negative bacilli --Urine culture growing E.Coli --Repeat blood culture pending Continue IV Rocephin Appreciate urology input Needs follow-up with urology with repeat imaging as outpatient Generalized weakness PT/OT eval Fall precautions (3) Chronic hyponatremia: Plan: Chronic hyponatremia Outpatient chart review shows sodium of 125 on 04/03/2022, 126 on 11/07/2021 and 06/18/2021 Hypoosmolar hyponatremia Normal TSH Sodium 124 on presentation Serum osmolality 257 Urine osmolality 412, urine sodium 28 ? SIADH Continue fluid restriction Sodium 129 today (4) HTN (hypertension): Plan: Continue lisinopril, metoprolol succinate (5) Hypothyroidism: Plan: TSH normal Continue levothyroxine Constipation Continue bowel regimen DVT Px SCDs for now Re: Hematuria Code Status Full Code Admission and Anticipated Discharge Date Admission Date: April 10, 2022 Subjective Patient is seen and examined at bedside Sitting in chair during my encounter Feels well No new complaints Denies any chest pain, dyspnea, dizziness, dysuria, abdominal pain, nausea Blood cultures pending Review of Systems Review of Systems: All systems reviewed & are unremarkable except as noted in Subjective Physical Exam Physical Exam: Physical Exam: Vitals signs as noted above General Appearance:Moderately built and nourished, no apparent distress Head: normocephalic, Atraumatic Eyes: normal inspection, EOMI Neck: supple, Trachea midline Respiratory/Chest: Normal breath sounds, CTA, No accessory muscle use Cardiovascular: S1, S2, No murmur Abdomen/GI:Soft, non tender, Bowel sounds present Extremities/Musculoskeletal:normal inspection, no edema Neurologic/Psych:AAOX3, grossly no focal neurological deficits Skin: normal color, warm Results & Data Results & Data ([facility]) Vital Signs (Past 12 Hours) Vital Signs Temp Pulse Pulse Resp BP Pulse Ox O2 Del Method 04/12/22 15:03 70 04/12/22 14:54 37.1 C 71 16 113/66 97 Room Air 04/12/22 11:21 36.7 C 64 18 118/69 96 Room Air 04/12/22 07:45 75 04/12/22 07:45 Room Air 04/12/22 07:51 36.7 C 74 18 125/78 98 Room Air Laboratory Results Short CBC 04/12/22 Range/Units 07:03 WBC 4.99 (4.8-10.8) K/ul Hgb 12.5 (12.0-16.0) g/dl Hct 35.8 (34.1-44.9) % Plt Count 270 (130-400) K/uL BMP 04/12/22 07:03 Sodium 129 L Potassium 4.0 Chloride 94 L Carbon Dioxide 26 BUN 16 Creatinine 0.90 Glucose 93 Calcium 9.3
[2022-04-12] MEDS: METOPROLOL SUCC 25MG EXT REL TAB PO SCH (21:51)
[2022-04-13] MEDS: LEVOTHYROXINE SODIUM 112 MCG TABLET PO SCH (05:12)
[2022-04-13 06:35] LABS: BUN Creatinine Ratio 22.8 (10-20); Creatinine Clr Calc Pharmacy 50.3 ml/min; Est GFR (African American) 81.4 ml/min; Est GFR (Non-African American) 70.2 ml/min; Potassium 4.3 mmol/L (3.5-5.1)
[2022-04-13] MEDS: lisinopril 20 MG TAB PO SCH ×2 (07:51→22:36)
[2022-04-13] MEDS: DOCUSATE SODIUM 100 MG CAP PO SCH ×2 (07:52→22:37)
[2022-04-13] MEDS: POLYETHYLENE (MIRALAX) 17 GM PACK PO SCH (07:52)
[2022-04-13] MEDS: cefTRIAXone SODIUM 2,000 MG in DEXTROSE 5% 50 ML IV SCH (11:48)
--- NOTE | 2022-04-13 14:48 | Hospitalist Progress Note ---
Date of Service April 13, 2022 Assessment & Plan (1) UTI (urinary tract infection): (2) Sepsis: Plan: Sepsis Acute pyelonephritis Gram-negative bacteremia Obstructive uropathy --CT ABD:Left hydronephrosis and hydroureter without evidence of obstructive stone. This may represent a recently passed stone. Otherwise no acute abnormalities. -- Blood culture growing gram-negative bacilli and E.coli --Urine culture growing E.Coli --Repeat blood culture: No growth to date Continue IV Rocephin Appreciate urology input Needs follow-up with urology with repeat imaging as outpatient Continue current management control final blood cultures. Generalized weakness PT/OT eval Fall precautions (3) Chronic hyponatremia: Plan: Chronic hyponatremia Outpatient chart review shows sodium of 125 on 04/03/2022, 126 on 11/07/2021 and 06/18/2021 Hypoosmolar hyponatremia Normal TSH Sodium 124 on presentation Serum osmolality 257 Urine osmolality 412, urine sodium 28 ? SIADH Continue fluid restriction Sodium 130 today (4) HTN (hypertension): Plan: Continue lisinopril, metoprolol succinate (5) Hypothyroidism: Plan: TSH normal Continue levothyroxine Constipation Continue bowel regimen DVT Px SCDs for now Re: Hematuria Code Status Full Code Admission and Anticipated Discharge Date Admission Date: April 10, 2022 Subjective Patient is seen and examined at bedside No new complaints Eager to get discharged Denies any chest pain, dyspnea, dizziness, dysuria, abdominal pain, nausea Review of Systems Review of Systems: All systems reviewed & are unremarkable except as noted in Subjective Physical Exam Physical Exam: Physical Exam: Vitals signs as noted above General Appearance:Moderately built and nourished, no apparent distress Head: normocephalic, Atraumatic Eyes: normal inspection, EOMI Neck: supple, Trachea midline Respiratory/Chest: Normal breath sounds, CTA, No accessory muscle use Cardiovascular: S1, S2, No murmur Abdomen/GI:Soft, non tender, Bowel sounds present Extremities/Musculoskeletal:normal inspection, no edema Neurologic/Psych:AAOX3, grossly no focal neurological deficits Skin: normal color, warm Results & Data Results & Data ([facility]) Vital Signs (Past 12 Hours) Vital Signs Temp Pulse Pulse Resp BP Pulse Ox O2 Del Method 04/13/22 11:40 36.4 C L 63 18 123/75 99 Room Air 04/13/22 09:30 Room Air 04/13/22 07:00 65 04/13/22 07:28 36.4 C L 73 18 123/53 L 96 Room Air 04/13/22 03:50 36.6 C 63 20 128/73 96 Room Air Laboratory Results [facility] 04/13/22 05:16 Sodium 130 L Potassium 4.3 Chloride 97 L Carbon Dioxide 25 BUN 18 Creatinine 0.79 Glucose 93 Calcium 9.0
[2022-04-13] MEDS: METOPROLOL SUCC 25MG EXT REL TAB PO SCH (22:37)
[2022-04-14] MEDS: LEVOTHYROXINE SODIUM 112 MCG TABLET PO SCH (06:48)
[2022-04-14] MEDS: DOCUSATE SODIUM 100 MG CAP PO SCH (08:03)
[2022-04-14] MEDS: POLYETHYLENE (MIRALAX) 17 GM PACK PO SCH (08:03)
[2022-04-14] MEDS: lisinopril 20 MG TAB PO SCH (08:03)
[2022-04-14 08:13] LABS: BUN Creatinine Ratio 19.4 (10-20); Calcium 9.2 mg/dl (8.5-10.1); Creatinine Clr Calc Pharmacy 42.7 ml/min; Est GFR (African American) 66.8 ml/min; Est GFR (Non-African American) 57.6 ml/min; Potassium 4.3 mmol/L (3.5-5.1)
[2022-04-14] MEDS: cefTRIAXone SODIUM 2,000 MG in DEXTROSE 5% 50 ML IV SCH (11:23)
--- NOTE | 2022-04-14 12:08 | Hospitalist Progress Note ---
Date of Service April 14, 2022 Assessment & Plan (1) UTI (urinary tract infection): (2) Sepsis: Plan: Sepsis Acute pyelonephritis Gram-negative bacteremia Obstructive uropathy --CT ABD:Left hydronephrosis and hydroureter without evidence of obstructive stone. This may represent a recently passed stone. Otherwise no acute abnormalities. -- Blood culture growing gram-negative bacilli and E.coli --Urine culture growing E.Coli --Repeat blood culture: No growth to date Continue IV Rocephin>> Transition to PO antibiotics to complete the course Appreciate urology input Needs follow-up with urology with repeat imaging as outpatient Generalized weakness PT/OT eval Fall precautions (3) Chronic hyponatremia: Plan: Chronic hyponatremia Outpatient chart review shows sodium of 125 on 04/03/2022, 126 on 11/07/2021 and 06/18/2021 Hypoosmolar hyponatremia Normal TSH Sodium 124 on presentation Serum osmolality 257 Urine osmolality 412, urine sodium 28 ? SIADH Continue fluid restriction Sodium 131 today (4) HTN (hypertension): Plan: Continue lisinopril, metoprolol succinate (5) Hypothyroidism: Plan: TSH normal Continue levothyroxine Constipation Continue bowel regimen DVT Px SCDs for now Re: Hematuria Ambulating well Code Status Full Code Disposition Home Admission and Anticipated Discharge Date Admission Date: April 10, 2022 Subjective Patient is seen and examined at bedside Doing well No new complaints Denies any chest pain, dyspnea, dizziness, dysuria, abdominal pain, nausea Plan to discharge home today Review of Systems Review of Systems: All systems reviewed & are unremarkable except as noted in Subjective Physical Exam Physical Exam: Physical Exam: Vitals signs as noted above General Appearance:Moderately built and nourished, no apparent distress Head: normocephalic, Atraumatic Eyes: normal inspection, EOMI Neck: supple, Trachea midline Respiratory/Chest: Normal breath sounds, CTA, No accessory muscle use Cardiovascular: S1, S2, No murmur Abdomen/GI:Soft, non tender, Bowel sounds present Extremities/Musculoskeletal:normal inspection, no edema Neurologic/Psych:AAOX3, grossly no focal neurological deficits Skin: normal color, warm Results & Data Results & Data ([facility]) Vital Signs (Past 12 Hours) Vital Signs Temp Pulse Pulse Resp BP BP Pulse Ox 04/14/22 11:44 36.7 C 66 18 109/69 97 04/14/22 11:34 36.9 C 64 18 127/76 117/64 94 04/14/22 08:00 65 04/14/22 09:00 04/14/22 07:57 36.9 C 64 18 117/64 94 04/14/22 04:05 37.1 C 64 20 127/76 99 04/14/22 00:19 37.1 C 70 20 138/73 96 O2 Del Method 04/14/22 11:44 Room Air 04/14/22 11:34 04/14/22 08:00 04/14/22 09:00 Room Air 04/14/22 07:57 Room Air 04/14/22 04:05 Room Air 04/14/22 00:19 Room Air Laboratory Results BMP 04/14/22 07:06 Sodium 131 L Potassium 4.3 Chloride 95 L Carbon Dioxide 28 BUN 18 Creatinine 0.93 Glucose 100 H Calcium 9.2
--- NOTE | 2022-04-14 12:17 | Discharge Summary ---
Date of Service April 14, 2022 Admission HPI Per Admitting Provider Patient is 81-year-old female with PMH HTN, hypothyroidism, chronic hyponatremia presented to ER with complaint of urinary symptoms x5 days. Patient states 5 days ago started with urinary urgency, urinary frequency, dysuria, hematuria. Reports was seen at an urgent care center 4 days ago and had urine sample however never was told results and was not started on any antibiotics. Patient reports urinating frequently however small amounts past 2 days. Yesterday with fever 102F, chills. Today has generalized weakness, feels lightheaded. Patient also reports left flank tenderness with range of motion. Denies history of UTI or kidney stones. Denies injury or trauma. Patient has been taking Tylenol 1 OTC tablet which initially brings down fever however fever returns. Last dose Tylenol this morning. States no BM for past 4 days. Denies diaphoresis, N/V/D, ROS[place]HAL, syncope, vision changes, neck pain, CP, SOB, orthopnea, palpitations, cough, sore throat, choking, otalgia, rhinorrhea, other abdominal pain, paresthesias, extremity weakness, extremity edema, rashes. Admission Exam Per Admitting Provider Physical Exam Physical Exam: General: no distress, WDWN Head: normocephalic, atraumatic Eyes: conjunctiva non-injected, anicteric ENT: normal inspection external ears, nose, mucous membranes moist Neck: supple, trachea midline Lungs: clear, no respiratory distress, no wheezing/rhonchi/rales CV: RRR, no murmur, no pretibial edema Abd: normal BS, soft, non-tender, + Left CVA/posterior flank tenderness to palpation Ext: no cyanosis, no calf tenderness Neuro: A&O x 3, no focal deficits noted, normal affect Skin: warm, dry Principal Diagnosis Sepsis Acute pyelonephritis E.Coli Bacteremia Chronic hyponatremia Discharge Data Allergies Allergy/AdvReac Type Severity Reaction Status Date / Time No Known Allergies Allergy Verified 08/17/20 12:26 Consultations 04/10/22 12:12 ED Decision to Admit Stat 04/10/22 22:24 Consult Urology Routine Procedures Performed Laboratory Results WBC 4.99 K/ul (4.8-10.8) 04/12/22 07:03 RBC 3.94 M/uL (3.93-5.22) 04/12/22 07:03 Hgb 12.5 g/dl (12.0-16.0) 04/12/22 07:03 Hct 35.8 % (34.1-44.9) 04/12/22 07:03 MCV 90.9 fL (80.0-100.0) 04/12/22 07:03 MCH 31.7 pg (25.0-34.0) 04/12/22 07:03 MCHC 34.9 g/dL (32.0-36.0) 04/12/22 07:03 RDW Std Deviation 43.8 fL (36.4-46.3) 04/12/22 07:03 RDW Coeff of Sri 13.2 % (11.5-14.5) 04/12/22 07:03 Plt Count 270 K/uL (130-400) 04/12/22 07:03 MPV 9.7 fL (9.4-12.3) 04/12/22 07:03 Immature Gran % (Auto) 0.9 % 04/11/22 08:48 Neut % (Auto) 81.4 % 04/11/22 08:48 Lymph % (Auto) 8.3 % 04/11/22 08:48 [place] % (Auto) 8.5 % 04/11/22 08:48 Eos % (Auto) 0.2 % 04/11/22 08:48 Baso % (Auto) 0.7 % 04/11/22 08:48 Neut # (Auto) 6.67 K/uL (1.4-6.5) H 04/11/22 08:48 Lymph # (Auto) 0.68 K/uL (1.2-3.4) L 04/11/22 08:48 [place] # (Auto) 0.70 K/uL (0.24-0.82) 04/11/22 08:48 Eos # (Auto) 0.02 K/uL (0-0.50) 04/11/22 08:48 Baso # (Auto) 0.06 K/uL (0-0.2) 04/11/22 08:48 Immature Gran # (Auto) 0.07 K/uL (0.00-0.02) H 04/11/22 08:48 Sodium 131 mmol/L (136-145) L 04/14/22 07:06 Potassium 4.3 mmol/L (3.5-5.1) 04/14/22 07:06 Chloride 95 mmol/L (98-107) L 04/14/22 07:06 Carbon Dioxide 28 mmol/L (21-32) 04/14/22 07:06 Anion Gap 8 (3-11) 04/14/22 07:06 BUN 18 mg/dl (6-23) 04/14/22 07:06 Creatinine 0.93 mg/dl (0.6-1.2) 04/14/22 07:06 Est Cr Clr Drug Dosing 42.7 ml/min 04/14/22 07:06 Est GFR ( Amer) 66.8 ml/min 04/14/22 07:06 Est GFR (Non-Af Amer) 57.6 ml/min 04/14/22 07:06 BUN/Creatinine Ratio 19.4 (10-20) 04/14/22 07:06 Glucose 100 mg/dl (70-99(Fasting)) H 04/14/22 07:06 Osmolality 257 mOsm/kg (280-300) L 04/10/22 10:23 Lactate 0.8 mmol/L (0.4-2.0) 04/10/22 11:43 Calcium 9.2 mg/dl (8.5-10.1) 04/14/22 07:06 Total Bilirubin 1.1 mg/dl (0.2-1.0) H 04/10/22 10:23 AST 19 U/L (13-39) 04/10/22 10:23 ALT 13 U/L (7-52) 04/10/22 10:23 Alkaline Phosphatase 71 U/L (34-104) 04/10/22 10:23 Total Protein 7.5 gm/dl (6.0-8.3) 04/10/22 10:23 Albumin 4.2 gm/dl (3.4-5.0) 04/10/22 10:23 Globulin 3.3 gm/dl (2.5-4.0) 04/10/22 10:23 Albumin/Globulin Ratio 1.3 (0.9-2) 04/10/22 10:23 Procalcitonin 0.50 ng/ml (0-0.5) 04/10/22 11:43 TSH 0.331 uIu/ml (0.300-4.500) 04/10/22 10:23 Urine Color Dark Yellow 04/10/22 10:23 Urine Appearance Turbid (Clear) A 04/10/22 10:23 Urine pH 6.0 (4.5-7.5) 04/10/22 10:23 Ur Specific [place] 1.017 (1.000-1.030) 04/10/22 10:23 Urine Protein 2+ (Negative) H 04/10/22 10:23 Urine Glucose (UA) Negative (Negative) 04/10/22 10:23 Urine Ketones 1+ (Negative) H 04/10/22 10: Urine Blood 3+ (Negative) H 04/10/22 10: Urine Nitrite Positive (Negative) A 04/10/22 10:23 Urine Bilirubin Negative (Negative) 04/10/22 10: Urine Urobilinogen Negative (Negative) 04/10/22 10:23 Ur Leukocyte Esterase 3+ (Negative) H 04/10/22 10:23 Urine WBC (Auto) >30 /hpf (0-5) H 04/10/22 10:23 Urine RBC (Auto) >30 /hpf (0-4) H 04/10/22 10:23 U Hyaline Cast (Auto) 1-5 /lpf (0-5) 04/10/22 10:23 U Epithel Cells (Auto) 5-10 /lpf (0-5) H 04/10/22 10:23 Urine Bacteria (Auto) 4+ (Negative) H 04/10/22 10:23 Urine Osmolality 412 mOsm/kg (500-800) L 04/10/22 10:23 Ur Random Sodium 28 mmol/L 04/10/22 10:23 SARS-CoV-2 (PCR) NEGATIVE (Negative) 04/10/22 12:51 Enterobacterales (PCR) DETECTED (NotDetected) A 04/10/22 11:43 E. coli (PCR) DETECTED (NotDetected) A 04/10/22 11:43 Influenza Type A (PCR) Negative (Neg) 04/10/22 12:51 Influenza Type B (PCR) Negative (Neg) 04/10/22 12:51 RSV (RT-PCR) Negative (Neg) 04/10/22 12:51 Staphylococcus sp PCR (NotDetected) 04/10/22 11:43 mcr-1 Colistin Res Gene PCR Not Detected (NotDetected) 04/10/22 11:43 Staph epidermidis (PCR) (NotDetected) 04/10/22 11:43 blaIMP Car res Gene PCR Not Detected (NotDetected) 04/10/22 11:43 KPC-Carbap Res Gene PCR Not Detected (NotDetected) 04/10/22 11:43 blaNDM Car Res Gene PCR Not Detected (NotDetected) 04/10/22 11:43 OXA-48 Carbapenem Resis Gene (PCR) Not Detected (NotDetected) 04/10/22 11:43 blaVIM Car Res Gene PCR Not Detected (NotDetected) 04/10/22 11:43 CTX-M Gene Resistance (PCR) Not Detected (NotDetected) 04/10/22 11:43 Bld Cult ID Panel PCR See PCR Comment (NotDetected) 04/10/22 11:43 Impressions Renal Ultrasound 04/10/22 13:10 US renal/blad retro comp CLINICAL HISTORY: UTI, r/o stone, pyelo TECHNIQUE: Multiple sonographic real-time images of the kidneys and bladder were obtained. COMPARISON: None available at the time of this dictation. FINDINGS: The right kidney measures 11.2 cm in length, and the left kidney measures 12.1 cm in length. The right kidney is normal in size, contour, cortical thickness, and echogenicity. Pelviectasis is seen without hydronephrosis. No renal lesion is identified. No perinephric fluid collection is seen. The left kidney is normal in size, contour, cortical thickness and echogenicity. There is possible lower pole hydronephrosis. A cyst in the lower pole measures 1.9 cm. No perinephric fluid collection is seen. The bladder is underdistended limiting visualization. There is suggestion of thickening of the posterior wall. No large intraluminal mass is seen. IMPRESSION: Possible left lower pole hydronephrosis. No obstructive stone is seen. If there is clinical concern, CT renal stone protocol can be performed. ACT 112: Negative or not required by law. Electronically signed by: Rhys Lee M.D. 04/10/2022 3:29 PM Abdomen/Pelvis CT 04/10/22 15:43 CT abd pelvis wo con CLINICAL HISTORY: R/O stone TECHNIQUE: Helical axial images of the abdomen and pelvis were obtained. Automated dose lowering techniques and/or adjustment according to patient size were utilized for this exam. This exam was performed without intravenous contrast. CT DOSE: 276.40 mGy.cm COMPARISON: Comparison is made to renal ultrasound 04/10/2022 FINDINGS: Lower chest: Bibasilar atelectasis versus scarring is seen. Liver: Unremarkable. No focal lesions are seen. Gallbladder and biliary tree: No calcified gallstones. Normal caliber wall. No intra- or extrahepatic biliary ductal dilation. Pancreas: Unremarkable, no focal lesions. Spleen: Unremarkable. Adrenals: Unremarkable. Kidneys and ureters: Left hydronephrosis is seen with associated hydroureter. There is no visualized obstructive stone. The right kidney is normal. Bladder: Limited evaluation due to underdistention. Reproductive organs: Unremarkable. Bowel: Unremarkable appearance of the bowel. The appendix is normal. Lymph nodes Retroperitoneal: Unremarkable. Pelvic: Unremarkable. Mesenteric: Unremarkable. Peritoneum: Normal. Vessels: Atherosclerotic calcifications are seen. Abdominal wall: Unremarkable. Bones: Degenerative changes in the visualized spine. There are compression deformities of L3 and L1 which appear chronic. IMPRESSION: Right hydronephrosis and hydroureter without evidence of obstructive stone. This may represent a recently passed stone. Otherwise no acute abnormalities. ACT 112: Negative or not required by law. Electronically signed by: Rhys Lee M.D. 04/10/2022 5:08 PM Ordered Studies 04/10/22 13:10 US Renal Bladder [US renal/blad retro comp] Urgent 04/10/22 15:43 CT Abd and Pelvis [CT abd pelvis wo con] Urgent Hospital Course (1) UTI (urinary tract infection): (2) Sepsis: Sepsis Acute pyelonephritis Gram-negative bacteremia Obstructive uropathy --CT ABD:Left hydronephrosis and hydroureter without evidence of obstructive stone. This may represent a recently passed stone. Otherwise no acute abnormalities. -- Blood culture growing gram-negative bacilli and E.coli --Urine culture growing E.Coli --Repeat blood culture: No growth to date Continue IV Rocephin>> Transition to PO antibiotics to complete the course Appreciate urology input Needs follow-up with urology with repeat imaging as outpatient Generalized weakness PT/OT eval Fall precautions (3) Chronic hyponatremia: Chronic hyponatremia Outpatient chart review shows sodium of 125 on 04/03/2022, 126 on 11/07/2021 and 06/18/2021 Hypoosmolar hyponatremia Normal TSH Sodium 124 on presentation Serum osmolality 257 Urine osmolality 412, urine sodium 28 ? SIADH Continue fluid restriction Sodium 131 today (4) HTN (hypertension): Continue lisinopril, metoprolol succinate (5) Hypothyroidism: TSH normal Continue levothyroxine Constipation Continue bowel regimen DVT Px SCDs for now Re: Hematuria Ambulating well Code Status Full Code Disposition Home Total Time Total Time Spent Total Time Spent (In Minutes): 47 minutes Discharge Plan Discharge Items Patient Disposition: Home - Self-Care Reason For Visit: UTI Discharge Diagnosis: Sepsis Acute pyelonephritis E.Coli Bacteremia Chronic hyponatremia Activity: Per Instructions section Exercise/Sports: Gradually increase as tolerated Non-emergency contact: Primary Care Provider and Urologist Call non-emergency contact if: you have any medication questions, your symptoms worsen, your pain is not controlled, your pain is concerning for you and you have a fever Follow-up/Referrals: Billy Feliz [Primary Care Provider] - Diet: Heart Healthy Fluids: 2000ml (8 cups) Ambulatory Orders: US renal/blad retro comp (Routine) Timeframe: 3 Weeks Facility: [facility] - Location: Radiology [facility] [place] Ordered By: Flavia Silva Attending Provider Instructions: Follow-up with your primary care physician in 1 week Follow-up with your urologist Flavia CLARK/ in 2-3 weeks as advised --- Your final blood cultures are pending at the time of discharge. Follow-up with your physician for results. --Obtain renal ultrasound in 3 weeks and follow-up with your urologist as advised --Complete antibiotic course cefdinir as prescribed. Seek immediate medical attention if your symptoms reoccur or worsen Please take all medications as instructed on discharge list below. Please call if you have any questions or problems. You can reach a [facility] hospitalist on duty at [facility] 24 hours a day by calling [phone] Pending Studies at Discharge: Yes Studies:: Blood Cultures Stand-Alone Forms: [facility] [email or web address], Smoking Cessation Medications and DC Order Prescriptions: New cefdinir 300 mg capsule 300 mg PO Q12H 10 Days Qty: 20 0RF Rx Instructions: Start taking from 04/15/22 Continued lisinopril 20 mg tablet 20 mg PO BID aspirin [Aspirin Low-Strength] 81 mg Tablet,Delayed Release (Dr/Ec) 81 mg PO MOWEFR Rx Instructions: takes at noon metoprolol succinate 25 mg tablet extended release 24 hr 25 mg PO PM levothyroxine 112 mcg tablet 112 mcg PO QAM Centrum Silver Women 8 mg iron-400 mcg-300 mcg Tablet 1 tab PO QAM Calcium 500 with Vitamin D2 500 mg(1,250mg) -200 unit Tablet 1 tab PO MOWEFR Discharge Orders: Discharge Order (Routine); Ordered 04/14/22 Ordered By: Fernando Armando Admission Data Admit Date/Time: 04/10/22 12:36 Attending Provider: Fernando Armando Admit Provider: Fernando Armando Primary Care Provider: Billy Feliz Other Providers: Fernando Armando ; Edgard Schroeder ; Tj Mai ; Alessandro Knight ; Asmita Moses ; Ozzy Hernandez ; Flavia Whitley ; Luzmaria Blankenship ; David Padilla ; Esau Witt ; Faiza Patterson ; Christiano Gutierres ; Cornell Presley
== END 2022-04-14 14:56 | disposition home or self-care (01) | DRG 872 ==
LOC: ED 09:40 → EDINP 12:36 → 2N 21:53